=== PATIENT | female | born 1950 | race Caucasian/White ===

== ENCOUNTER 2021-02-15 06:13 | Observation (INO) ==
[2021-02-09 16:36] LABS: Basophils # 0.1 10*3/uL (0.0-0.2); Basophils % 0.9 % (0.0-0.8); Eosinophils # 0.7 10*3/uL (0.0-0.87); Eosinophils % 5.2 % (0.00-10.9); Hematocrit 38.6 VOL% (35.7-47.0); Hemoglobin 12.9 GM/DL (12.0-16.0); Immature Granulocytes % 0.5 %; Immature Granulocytes Absolute 0.06 #; Lymphocytes # 1.6 10*3/uL (1.4-4.0); Lymphocytes % 12.9 % (21.3-54.2); Mean Corpuscular HGB Conc 33.4 GM/DL (32-36); Mean Corpuscular Volume 92.1 FL (87-102); Mean Platelet Volume 11.2 FL (9.6-12.0); Monocytes % 9.4 % (1.7-12.7); Neutrophils % 71.1 % (38.7-73.9); Platelet Count 288 T/CUMM (130-400); Red Blood Count 4.19 MC/CUMM (3.8-5.5); Red Cell Distribution Width 15.3 % (9.3-17.3); White Blood Count 12.6 T/CUMM (4-12)
[2021-02-09 16:53] LABS: Calcium 8.9 MG/DL (8.5-10.1); Osmolality,Calculated 280.4 MOS/KG (273-304); Potassium 4.1 MMOL/L (3.5-5.1)
[2021-02-15] MEDS ORDERED: LACTATED RINGERS 1,000 ML IV SCH ×2 (07:30→12:44)
[2021-02-15] MEDS ORDERED: ISOSULFAN BLUE 5 ML VIAL SUBCUT ONE (09:43)
[2021-02-15] MEDS ORDERED: ONDANSETRON 4 MG/2 ML VIAL IV PRN ×2 (12:35→12:44)
[2021-02-15] MEDS: HYDROmorphone 2 MG/1 ML VIAL IV PRN ×2 (12:38→12:43)
[2021-02-15] MEDS ORDERED: PSEUDOEPHEDRINE PO PRN (12:44)
[2021-02-15] MEDS ORDERED: DEXTROMETHORPHAN PO PRN (12:44)
[2021-02-15] MEDS ORDERED: PROMETHAZINE 25 MG/1 ML VIAL IM PRN (12:44)
[2021-02-15] MEDS ORDERED: HYDROmorphone 2 MG/1 ML VIAL IV PRN (12:44)
[2021-02-15] MEDS ORDERED: GUAIFENESIN PO PRN (12:44)
[2021-02-15] MEDS ORDERED: ACETAMINOPHEN PO PRN (12:44)
[2021-02-15] MEDS ORDERED: traMADol 50 MG TABLET PO PRN (12:44)
[2021-02-15] MEDS ORDERED: KETOROLAC 15 MG/1 ML VIAL IV SCH (12:44)
[2021-02-15 13:14] LABS: Basophils # 0.1 10*3/uL (0.0-0.2); Basophils % 0.6 % (0.0-0.8); Eosinophils # 0.4 10*3/uL (0.0-0.87); Eosinophils % 3.2 % (0.00-10.9); Hematocrit 35.2 VOL% (35.7-47.0); Hemoglobin 11.5 GM/DL (12.0-16.0); Immature Granulocytes % 0.7 %; Lymphocytes # 1.1 10*3/uL (1.4-4.0); Lymphocytes % 7.9 % (21.3-54.2); Mean Corpuscular HGB Conc 32.7 GM/DL (32-36); Mean Corpuscular Volume 91.2 FL (87-102); Monocytes % 5.2 % (1.7-12.7); Neutrophils % 82.4 % (38.7-73.9); Platelet Count 234 T/CUMM (130-400); Red Blood Count 3.86 MC/CUMM (3.8-5.5); Red Cell Distribution Width 15.3 % (9.3-17.3); White Blood Count 13.5 T/CUMM (4-12)
[2021-02-15 13:36] LABS: Calcium 8.3 MG/DL (8.5-10.1); Osmolality,Calculated 287.1 MOS/KG (273-304); Potassium 3.8 MMOL/L (3.5-5.1)
[2021-02-15] MEDS ORDERED: ALBUTEROL 2.5 MG/3 ML NEB RESP TX PRN (14:20)
[2021-02-15] MEDS: LACTATED RINGERS 1,000 ML IV SCH ×2 (15:00→23:16)
[2021-02-15] MEDS: KETOROLAC 15 MG/1 ML VIAL IV SCH (17:45)
[2021-02-15] MEDS: guaiFENesin/DM ER 600-30 MG TABLET PO SCH (21:31)
[2021-02-16] MEDS: KETOROLAC 15 MG/1 ML VIAL IV SCH ×4 (00:18→17:57)
[2021-02-16] MEDS: LEVOTHYROXINE 175 MCG TABLET PO SCH (06:04)
[2021-02-16 06:21] LABS: Basophils % 0.2 % (0.0-0.8); Eosinophils % 0.2 % (0.00-10.9); Hematocrit 30.4 VOL% (35.7-47.0); Hemoglobin 10.2 GM/DL (12.0-16.0); Immature Granulocytes % 0.5 %; Immature Granulocytes Absolute 0.06 #; Mean Corpuscular HGB Conc 33.6 GM/DL (32-36); Mean Corpuscular Volume 91.6 FL (87-102); Mean Platelet Volume 10.5 FL (9.6-12.0); Monocytes % 6.4 % (1.7-12.7); Neutrophils % 84.7 % (38.7-73.9); Platelet Count 229 T/CUMM (130-400); Red Blood Count 3.32 MC/CUMM (3.8-5.5); Red Cell Distribution Width 15.4 % (9.3-17.3); White Blood Count 12.3 T/CUMM (4-12)
[2021-02-16] MEDS ORDERED: ENOXAPARIN 40 MG/0.4 ML SYRINGE SUBCUT SCH (06:30)
[2021-02-16 06:50] LABS: Calcium 8.2 MG/DL (8.5-10.1); Osmolality,Calculated 285.1 MOS/KG (273-304); Potassium 4.1 MMOL/L (3.5-5.1)
[2021-02-16] MEDS: LACTATED RINGERS 1,000 ML IV SCH ×2 (07:30→18:03)
[2021-02-16] MEDS ORDERED: CLINDAMYCIN INJ 900 MG/50 ML PREMIX IV ONE (09:07)
[2021-02-16] MEDS: ASPIRIN EC 81 MG TABLET PO SCH (09:55)
[2021-02-16] MEDS: CALCIUM (CARBONATE)/VITAMIN D 600 MG-400 UNIT TABLET PO SCH (09:56)
[2021-02-16] MEDS: guaiFENesin/DM ER 600-30 MG TABLET PO SCH ×2 (09:56→22:08)
[2021-02-16] MEDS: FOLIC ACID 1 MG TABLET PO SCH (09:56)
[2021-02-16] MEDS: GABAPENTIN 300 MG CAPSULE PO SCH (09:56)
[2021-02-16] MEDS: MULTIVITAMIN (CENTRUM) TABLET PO SCH (09:56)
[2021-02-16] MEDS: CHOLECALCIFEROL 1,000 UNIT TABLET PO SCH (09:57)
[2021-02-16] MEDS: PYRIDOXINE 100 MG TABLET PO SCH (09:57)
[2021-02-16] MEDS: predniSONE 5 MG TABLET PO SCH (09:57)
[2021-02-16] MEDS: CETIRIZINE 10 MG TABLET PO SCH (09:57)
[2021-02-16] MEDS: ATORVASTATIN 20 MG TABLET PO SCH (11:14)
[2021-02-16] MEDS: ENOXAPARIN 40 MG/0.4 ML SYRINGE SUBCUT SCH (11:14)
[2021-02-17] MEDS: LACTATED RINGERS 1,000 ML IV SCH ×2 (00:41→07:26)
[2021-02-17] MEDS: KETOROLAC 15 MG/1 ML VIAL IV SCH ×2 (00:41→06:10)
[2021-02-17 05:56] LABS: Basophils # 0.1 10*3/uL (0.0-0.2); Eosinophils # 0.4 10*3/uL (0.0-0.87); Eosinophils % 4.9 % (0.00-10.9); Hematocrit 30.9 VOL% (35.7-47.0); Immature Granulocytes % 0.3 %; Immature Granulocytes Absolute 0.03 #; Lymphocytes # 1.8 10*3/uL (1.4-4.0); Lymphocytes % 20.6 % (21.3-54.2); Mean Corpuscular HGB Conc 32.4 GM/DL (32-36); Mean Corpuscular Volume 93.6 FL (87-102); Mean Platelet Volume 10.5 FL (9.6-12.0); Monocytes % 10.8 % (1.7-12.7); Neutrophils % 62.4 % (38.7-73.9); Platelet Count 229 T/CUMM (130-400); Red Cell Distribution Width 15.7 % (9.3-17.3); White Blood Count 8.6 T/CUMM (4-12)
[2021-02-17] MEDS: LEVOTHYROXINE 175 MCG TABLET PO SCH (06:10)
[2021-02-17] MEDS: ASPIRIN EC 81 MG TABLET PO SCH (08:53)
[2021-02-17] MEDS: CETIRIZINE 10 MG TABLET PO SCH (08:53)
[2021-02-17] MEDS: GABAPENTIN 300 MG CAPSULE PO SCH (08:53)
[2021-02-17] MEDS: CALCIUM (CARBONATE)/VITAMIN D 600 MG-400 UNIT TABLET PO SCH (08:53)
[2021-02-17] MEDS: FOLIC ACID 1 MG TABLET PO SCH (08:53)
[2021-02-17] MEDS: ENOXAPARIN 40 MG/0.4 ML SYRINGE SUBCUT SCH (08:54)
[2021-02-17] MEDS: MULTIVITAMIN (CENTRUM) TABLET PO SCH (08:56)
[2021-02-17] MEDS: guaiFENesin/DM ER 600-30 MG TABLET PO SCH (08:56)
[2021-02-17] MEDS: ATORVASTATIN 20 MG TABLET PO SCH (08:56)
[2021-02-17] MEDS: predniSONE 5 MG TABLET PO SCH (08:57)
[2021-02-17] MEDS: PYRIDOXINE 100 MG TABLET PO SCH (08:57)
[2021-02-17] MEDS: CHOLECALCIFEROL 1,000 UNIT TABLET PO SCH (08:57)
[2021-02-17 09:02] VITALS: BP 122/63
== END 2021-02-17 10:30 | disposition home or self-care (01) ==
LOC: N.4E 06:13 → N.OR 06:13 → N.SDSINP 06:15 → N.4E 13:49
PROVIDERS: ADMIT Surgery; ATTEND Surgery

== ENCOUNTER 2021-05-30 17:56 | Inpatient (IN) ==
[2021-05-30 19:29] LABS: Basophils # 0.1 10*3/uL (0.0-0.2); Basophils % 0.6 % (0.0-0.8); Eosinophils # 0.3 10*3/uL (0.0-0.87); Eosinophils % 1.9 % (0.00-10.9); Hematocrit 22.2 VOL% (35.7-47.0); Hemoglobin 7.4 GM/DL (12.0-16.0); Immature Granulocytes % 1.1 %; Immature Granulocytes Absolute 0.19 #; Lymphocytes # 1.9 10*3/uL (1.4-4.0); Lymphocytes % 10.9 % (21.3-54.2); Mean Corpuscular HGB Conc 33.3 GM/DL (32-36); Mean Corpuscular Volume 87.4 FL (87-102); Mean Platelet Volume 10.2 FL (9.6-12.0); Monocytes % 7.1 % (1.7-12.7); NRBC # 0.03 10*3/uL; Neutrophils % 78.4 % (38.7-73.9); Platelet Count 357 T/CUMM (130-400); Red Blood Count 2.54 MC/CUMM (3.8-5.5); Red Cell Distribution Width 17.9 % (9.3-17.3); White Blood Count 17.1 T/CUMM (4-12)
[2021-05-30 19:46] LABS: Osmolality,Calculated 284.4 MOS/KG (273-304); Potassium 4.7 MMOL/L (3.5-5.1)
[2021-05-30] MEDS ORDERED: SODIUM CHLORIDE 0.9% 1,000 ML IV STA (20:45)
[2021-05-30] MEDS ORDERED: PANTOPRAZOLE INJ 80 MG in SODIUM CHLORIDE 0.9% 100 ML IV ONE (20:46)
[2021-05-30] MEDS ORDERED: SODIUM CHLORIDE 0.9% 1,000 ML IV PRN (21:57)
[2021-05-30 22:20] LABS: INR 1.1; PT Patient Result 12.3 SECS (10.5-12.0)
[2021-05-30] MEDS: PANTOPRAZOLE INJ 200 MG in SODIUM CHLORIDE 0.9% 250 ML IV SCH (22:45)
[2021-05-31] MEDS ORDERED: ONDANSETRON 4 MG/2 ML VIAL IV PRN (00:08)
[2021-05-31] MEDS ORDERED: GLUCAGON 1 MG VIAL IM PRN (00:08)
[2021-05-31] MEDS ORDERED: ACETAMINOPHEN 325 MG TABLET PO PRN (00:08)
[2021-05-31] MEDS ORDERED: DEXTROSE 50% 25 GM/50 ML VIAL IV PRN (00:08)
[2021-05-31] MEDS: SODIUM CHLORIDE 0.9% 1,000 ML IV SCH ×2 (01:00→11:10)
[2021-05-31 02:09] LABS: Bilirubin,Urine Negative (Negative); Blood, Urine Negative (Negative); Glucose,Urine (UA) Negative (Negative); Hyaline Casts,Urine 1 /LPF (0-3); Ketones,Urine Negative (Negative); Nitrite,Urine Negative (Negative); Protein,Urine Negative; RBC,Urine <1 /HPF (0-4); Squamous Epithelial Cell,Urine Occasional /HPF (0-10); Urine Appearance CLEAR (Clear); Urine Color Straw (Yellow); Urine Specific Gravity 1.014 (1.001-1.035); Urine Urobilinogen < 2.0 EU/DL (0.2-1.0)
[2021-05-31 05:07] LABS: Basophils # 0.1 10*3/uL (0.0-0.2); Basophils % 0.7 % (0.0-0.8); Eosinophils # 0.5 10*3/uL (0.0-0.87); Eosinophils % 2.9 % (0.00-10.9); Hematocrit 24.7 VOL% (35.7-47.0); Hemoglobin 8.3 GM/DL (12.0-16.0); Immature Granulocytes % 0.9 %; Immature Granulocytes Absolute 0.14 #; Lymphocytes # 1.9 10*3/uL (1.4-4.0); Lymphocytes % 12.1 % (21.3-54.2); Mean Corpuscular HGB Conc 33.6 GM/DL (32-36); Mean Corpuscular Volume 86.1 FL (87-102); Monocytes % 8.5 % (1.7-12.7); NRBC # 0.03 10*3/uL; Neutrophils % 74.9 % (38.7-73.9); Platelet Count 286 T/CUMM (130-400); Red Blood Count 2.87 MC/CUMM (3.8-5.5); Red Cell Distribution Width 16.7 % (9.3-17.3); White Blood Count 15.7 T/CUMM (4-12)
[2021-05-31 05:43] LABS: Albumin 2.6 G/DL (3.4-5.0); Bilirubin,Total 0.6 MG/DL (0.20-1.00); Calcium 8.6 MG/DL (8.5-10.1); Osmolality,Calculated 286.8 MOS/KG (273-304); Potassium 4.5 MMOL/L (3.5-5.1); Risk Ratio 3.2; Thyroid Stimulating Hormone 1.87 uIU/ml (0.358-3.74); Total Protein 6.4 G/DL (6.4-8.2); VLDL Cholesterol 30.6 MG/DL
[2021-05-31 10:45] LABS: Hematocrit 24.8 VOL% (35.7-47.0); Hemoglobin 8.1 GM/DL (12.0-16.0)
[2021-05-31] MEDS ORDERED: SODIUM CHLORIDE 0.9% 1,000 ML IV PRN ×2 (14:42→23:58)
[2021-05-31] MEDS ORDERED: ALBUTEROL 2.5 MG/3 ML NEB RESP TX PRN (14:51)
[2021-05-31 16:12] LABS: Hematocrit 24.6 VOL% (35.7-47.0); Hemoglobin 7.9 GM/DL (12.0-16.0)
[2021-05-31] MEDS: GABAPENTIN 300 MG CAPSULE PO SCH (21:22)
[2021-05-31] MEDS: HYDROXYCHLOROQUINE 200 MG TABLET PO SCH (21:22)
[2021-05-31 23:19] LABS: Hemoglobin 6.7 GM/DL (12.0-16.0)
[2021-06-01] MEDS: SODIUM CHLORIDE 0.9% 1,000 ML IV SCH ×3 (05:32→21:16)
[2021-06-01] MEDS: PANTOPRAZOLE INJ 200 MG in SODIUM CHLORIDE 0.9% 250 ML IV SCH (05:58)
[2021-06-01] MEDS: LEVOTHYROXINE 175 MCG TABLET PO SCH (05:58)
[2021-06-01] MEDS ORDERED: LACTATED RINGERS 1,000 ML IV SCH (08:00)
[2021-06-01 08:23] LABS: Basophils # 0.1 10*3/uL (0.0-0.2); Basophils % 0.7 % (0.0-0.8); Eosinophils # 0.6 10*3/uL (0.0-0.87); Eosinophils % 4.5 % (0.00-10.9); Hematocrit 23.7 VOL% (35.7-47.0); Hemoglobin 7.5 GM/DL (12.0-16.0); Immature Granulocytes % 2.1 %; Immature Granulocytes Absolute 0.28 #; Lymphocytes # 1.8 10*3/uL (1.4-4.0); Lymphocytes % 13.1 % (21.3-54.2); Mean Corpuscular HGB Conc 31.6 GM/DL (32-36); Mean Corpuscular Volume 87.8 FL (87-102); Mean Platelet Volume 10.1 FL (9.6-12.0); Monocytes % 8.1 % (1.7-12.7); NRBC # 0.09 10*3/uL; Neutrophils % 71.5 % (38.7-73.9); Platelet Count 247 T/CUMM (130-400); Red Cell Distribution Width 17.2 % (9.3-17.3); White Blood Count 13.6 T/CUMM (4-12)
[2021-06-01 08:43] LABS: Calcium 8.2 MG/DL (8.5-10.1); Osmolality,Calculated 288.3 MOS/KG (273-304)
[2021-06-01] MEDS ORDERED: propofoL 200 MG/20 ML VIAL IV ONE (13:56)
[2021-06-01] MEDS ORDERED: LIDOCAINE 2% 5 ML VIAL ONE (13:56)
[2021-06-01] MEDS: HYDROXYCHLOROQUINE 200 MG TABLET PO SCH ×2 (14:44→21:17)
[2021-06-01] MEDS: GABAPENTIN 300 MG CAPSULE PO SCH ×2 (14:44→21:16)
[2021-06-01] MEDS: ATORVASTATIN 20 MG TABLET PO SCH (15:03)
[2021-06-01] MEDS: CETIRIZINE 10 MG TABLET PO SCH (15:03)
[2021-06-01] MEDS: MULTIVITAMIN (CENTRUM) TABLET PO SCH (15:03)
[2021-06-01] MEDS: PYRIDOXINE 100 MG TABLET PO SCH (15:03)
[2021-06-01] MEDS: ANASTROZOLE 1 MG TABLET PO SCH (15:03)
[2021-06-01] MEDS: FOLIC ACID 1 MG TABLET PO SCH (15:03)
[2021-06-01] MEDS: CALCIUM (CARBONATE)/VITAMIN D 500 MG-200 UNIT TABLET PO SCH (15:04)
[2021-06-01] MEDS: CHOLECALCIFEROL 5,000 UNIT TABLET PO SCH (15:04)
[2021-06-01 15:25] LABS: Hematocrit 27.6 VOL% (35.7-47.0); Hemoglobin 9.1 GM/DL (12.0-16.0)
[2021-06-01 18:04] LABS: Hematocrit 27.9 VOL% (35.7-47.0)
[2021-06-02 02:12] LABS: Hematocrit 26.9 VOL% (35.7-47.0); Hemoglobin 8.8 GM/DL (12.0-16.0)
[2021-06-02] MEDS: SODIUM CHLORIDE 0.9% 1,000 ML IV SCH ×2 (05:49→15:31)
[2021-06-02] MEDS: LEVOTHYROXINE 175 MCG TABLET PO SCH (05:49)
[2021-06-02 05:59] LABS: Basophils # 0.1 10*3/uL (0.0-0.2); Basophils % 0.8 % (0.0-0.8); Eosinophils # 0.6 10*3/uL (0.0-0.87); Eosinophils % 5.2 % (0.00-10.9); Hemoglobin 8.8 GM/DL (12.0-16.0); Immature Granulocytes % 1.5 %; Immature Granulocytes Absolute 0.16 #; Lymphocytes # 1.6 10*3/uL (1.4-4.0); Lymphocytes % 14.5 % (21.3-54.2); Mean Corpuscular HGB Conc 32.6 GM/DL (32-36); Mean Corpuscular Volume 89.7 FL (87-102); Mean Platelet Volume 10.2 FL (9.6-12.0); Monocytes % 9.4 % (1.7-12.7); NRBC # 0.06 10*3/uL; Neutrophils % 68.6 % (38.7-73.9); Platelet Count 224 T/CUMM (130-400); Red Blood Count 3.01 MC/CUMM (3.8-5.5); Red Cell Distribution Width 17.6 % (9.3-17.3); White Blood Count 10.8 T/CUMM (4-12)
[2021-06-02 06:30] LABS: Calcium 8.5 MG/DL (8.5-10.1)
[2021-06-02] MEDS: HYDROXYCHLOROQUINE 200 MG TABLET PO SCH ×2 (09:19→20:49)
[2021-06-02] MEDS: GABAPENTIN 300 MG CAPSULE PO SCH ×2 (09:19→20:49)
[2021-06-02] MEDS: ATORVASTATIN 20 MG TABLET PO SCH (09:19)
[2021-06-02] MEDS: MULTIVITAMIN (CENTRUM) TABLET PO SCH (09:19)
[2021-06-02] MEDS: ANASTROZOLE 1 MG TABLET PO SCH (09:19)
[2021-06-02] MEDS: PYRIDOXINE 100 MG TABLET PO SCH (09:19)
[2021-06-02] MEDS: CHOLECALCIFEROL 5,000 UNIT TABLET PO SCH (09:20)
[2021-06-02] MEDS: CETIRIZINE 10 MG TABLET PO SCH (09:20)
[2021-06-02] MEDS: FOLIC ACID 1 MG TABLET PO SCH (09:20)
[2021-06-02] MEDS: CALCIUM (CARBONATE)/VITAMIN D 500 MG-200 UNIT TABLET PO SCH (09:26)
[2021-06-02] MEDS: PANTOPRAZOLE INJ 200 MG in SODIUM CHLORIDE 0.9% 250 ML IV SCH ×2 (09:50→10:31)
[2021-06-03] MEDS: SODIUM CHLORIDE 0.9% 1,000 ML IV SCH ×3 (02:15→18:21)
[2021-06-03 04:50] LABS: Basophils # 0.1 10*3/uL (0.0-0.2); Basophils % 0.8 % (0.0-0.8); Eosinophils # 0.7 10*3/uL (0.0-0.87); Eosinophils % 6.5 % (0.00-10.9); Hematocrit 25.4 VOL% (35.7-47.0); Hemoglobin 7.9 GM/DL (12.0-16.0); Immature Granulocytes % 1.4 %; Immature Granulocytes Absolute 0.14 #; Lymphocytes # 1.6 10*3/uL (1.4-4.0); Lymphocytes % 15.7 % (21.3-54.2); Mean Corpuscular HGB Conc 31.1 GM/DL (32-36); Mean Corpuscular Volume 91.7 FL (87-102); Mean Platelet Volume 10.4 FL (9.6-12.0); Monocytes % 9.2 % (1.7-12.7); NRBC # 0.05 10*3/uL; Neutrophils % 66.4 % (38.7-73.9); Platelet Count 233 T/CUMM (130-400); Red Blood Count 2.77 MC/CUMM (3.8-5.5); Red Cell Distribution Width 18.9 % (9.3-17.3); White Blood Count 10.2 T/CUMM (4-12)
[2021-06-03] MEDS: LEVOTHYROXINE 175 MCG TABLET PO SCH (06:00)
[2021-06-03] MEDS: PANTOPRAZOLE INJ 200 MG in SODIUM CHLORIDE 0.9% 250 ML IV SCH (08:13)
[2021-06-03] MEDS: ANASTROZOLE 1 MG TABLET PO SCH (09:25)
[2021-06-03] MEDS: HYDROXYCHLOROQUINE 200 MG TABLET PO SCH ×2 (09:25→21:00)
[2021-06-03] MEDS: GABAPENTIN 300 MG CAPSULE PO SCH ×2 (09:25→21:00)
[2021-06-03] MEDS: PYRIDOXINE 100 MG TABLET PO SCH (09:25)
[2021-06-03] MEDS: CHOLECALCIFEROL 5,000 UNIT TABLET PO SCH (09:25)
[2021-06-03] MEDS: CETIRIZINE 10 MG TABLET PO SCH (09:25)
[2021-06-03] MEDS: ATORVASTATIN 20 MG TABLET PO SCH (09:25)
[2021-06-03] MEDS: FOLIC ACID 1 MG TABLET PO SCH (09:25)
[2021-06-03] MEDS: PANTOPRAZOLE 40 MG VIAL IV SCH ×2 (09:25→21:02)
[2021-06-03] MEDS: MULTIVITAMIN (CENTRUM) TABLET PO SCH (09:25)
[2021-06-03] MEDS: CALCIUM (CARBONATE)/VITAMIN D 500 MG-200 UNIT TABLET PO SCH (09:27)
[2021-06-03 13:38] LABS: Hematocrit 28.5 VOL% (35.7-47.0)
[2021-06-03] MEDS: NYSTATIN CREAM 15 GM TUBE TOP SCH (21:03)
[2021-06-04 04:46] LABS: Basophils # 0.1 10*3/uL (0.0-0.2); Basophils % 0.5 % (0.0-0.8); Eosinophils # 0.5 10*3/uL (0.0-0.87); Eosinophils % 4.1 % (0.00-10.9); Hematocrit 26.1 VOL% (35.7-47.0); Immature Granulocytes % 1.1 %; Immature Granulocytes Absolute 0.13 #; Lymphocytes # 1.2 10*3/uL (1.4-4.0); Lymphocytes % 10.1 % (21.3-54.2); Mean Corpuscular HGB Conc 30.7 GM/DL (32-36); Mean Corpuscular Volume 92.9 FL (87-102); Mean Platelet Volume 10.3 FL (9.6-12.0); Monocytes % 8.3 % (1.7-12.7); NRBC # 0.04 10*3/uL; Neutrophils % 75.9 % (38.7-73.9); Platelet Count 251 T/CUMM (130-400); Red Blood Count 2.81 MC/CUMM (3.8-5.5); Red Cell Distribution Width 19.2 % (9.3-17.3); White Blood Count 11.7 T/CUMM (4-12)
[2021-06-04] MEDS: SODIUM CHLORIDE 0.9% 1,000 ML IV SCH (05:30)
[2021-06-04] MEDS: LEVOTHYROXINE 175 MCG TABLET PO SCH (05:31)
[2021-06-04 08:23] VITALS: BP 112/45
[2021-06-04] MEDS ORDERED: CALCIUM (CARBONATE)/VITAMIN D 600 MG-400 UNIT TABLET PO SCH (09:00)
[2021-06-04] MEDS: FOLIC ACID 1 MG TABLET PO SCH (09:55)
[2021-06-04] MEDS: PYRIDOXINE 100 MG TABLET PO SCH (09:55)
[2021-06-04] MEDS: HYDROXYCHLOROQUINE 200 MG TABLET PO SCH (09:55)
[2021-06-04] MEDS: CETIRIZINE 10 MG TABLET PO SCH (09:55)
[2021-06-04] MEDS: ATORVASTATIN 20 MG TABLET PO SCH (09:55)
[2021-06-04] MEDS: GABAPENTIN 300 MG CAPSULE PO SCH (09:55)
[2021-06-04] MEDS: MULTIVITAMIN (CENTRUM) TABLET PO SCH (09:55)
[2021-06-04] MEDS: PANTOPRAZOLE 40 MG VIAL IV SCH (09:55)
[2021-06-04] MEDS: NYSTATIN CREAM 15 GM TUBE TOP SCH (09:56)
[2021-06-04] MEDS: CHOLECALCIFEROL 5,000 UNIT TABLET PO SCH (09:56)
[2021-06-04] MEDS: ANASTROZOLE 1 MG TABLET PO SCH (09:56)
== END 2021-06-04 12:35 | disposition home or self-care (01) | DRG 378 ==
LOC: N.ED 17:56 → N.EDINP 17:56 → N.5E 05-31 13:56 → SUATTDRO 06-01 15:15
PROVIDERS: ADMIT Internal Medicine; ATTEND Internal Medicine Nephrology